=== PATIENT | female | born 1985 | race Caucasian/White ===

== ENCOUNTER 2021-02-13 05:15 | Day surgery (SDC) | payer OTHER ==
[2021-02-10 09:34] VITALS: BMI 20.2
[~2021-02-13 05:15] MED LIST: LIDOCAINE HCL 1%, 10 MG/ML (20ML VIAL) INF ONE; ceFAZolin SODIUM 1 GM VIAL IVPB ONE
[2021-02-13 09:36] LABS: BASO % 0.7 % (0-2.0); EOS % 2.8 % (0-4.5); HEMOGLOBIN 13.1 GM/dL (10.7-15.3); LYMPH % 24.2 % (8-40); MCHC 34.4 g/dl (32.0-36.0); MEAN CELL VOLUME 90.2 fl (80-96); MEAN PLT VOLUME 8.5 fl (7.5-11.1); NEUT % 65.3 % (42.8-82.8); PLATELET COUNT 162 K/MM3 (134-434); RBC 4.21 M/mm3 (3.60-5.2); RDW 12.7 % (11.6-15.6); WHITE BLOOD COUNT 5.8 K/mm3 (4.0-10.0)
[2021-02-13 09:59] LABS: INR 0.96 (0.83-1.09); PROTHROMBIN TIME (PATIENT) 11.6 SEC (9.7-13.0)
[2021-02-13 10:02] LABS: ALBUMIN 3.4 g/dl (3.4-5.0); CALCIUM 8.4 mg/dL (8.5-10.1)
[2021-02-13 10:03] LABS: BLOOD UREA NITROGEN 5.2 mg/dL (7-18)
[2021-02-13 10:06] LABS: BILIRUBIN,TOTAL 0.3 mg/dL (0.2-1); CREATININE 0.7 mg/dL (0.55-1.3); TOT PROT 7.2 g/dl (6.4-8.2)
[2021-02-13] MEDS ORDERED: PROMETHAZINE HCL 25 MG/1 ML VIAL IVPUSH PRN (10:38)
[2021-02-13] MEDS ORDERED: oxyCODONE HCL 5 MG TABLET PO PRN (10:38)
[2021-02-13] MEDS ORDERED: ONDANSETRON 4 MG/2 ML VIAL IVPUSH PRN (10:38)
[2021-02-13] MEDS ORDERED: LACTATED RINGERS SOLUTION 1,000 ML IV SCH (10:45)
[2021-02-13] MEDS ORDERED: PROPOFOL 20 ML ONE (12:29)
[2021-02-13] MEDS ORDERED: LIDOCAINE HCL/PF 2% SDV 5ML VIAL ONE (12:30)
[2021-02-13] MEDS ORDERED: MIDAZOLAM HCL 2 MG/2 ML SINGLE DOSE VIAL ONE (12:30)
[2021-02-13] MEDS ORDERED: ONDANSETRON 4 MG/2 ML VIAL ONE (13:06)
[2021-02-13] MEDS ORDERED: KETOROLAC TROMETHAMINE 30 MG/1 ML VIAL ONE (13:06)
[2021-02-13] MEDS ORDERED: LIDOCAINE HCL 1%, 10 MG/ML (20ML VIAL) INF ONE (13:11)
[2021-02-13 17:03] VITALS: BP 109/64; PULSE 65; TEMP 97.8
== END 2021-02-13 16:00 | disposition home or self-care (01) ==
LOC: JASU-SURG 05:15
PROVIDERS: ATTEND Surgery
PROC: 0HBU0ZZ Excision of Left Breast, Open Approach (ICD-10-PCS; principal; 2021-02-13 11:00)
DX: D24.2 Benign neoplasm of left breast (principal)
CPT/HCPCS: 36415; 80053; 81025; 84703; 85025; 85610; 94760